=== PATIENT | male | born 1945 | race Caucasian/White ===

== ENCOUNTER 2022-05-22 06:20 | Day surgery (SDC) | payer OTHER ==
[~2022-05-22] VITALS: Ht 165.1 cm; Wt 68.7 kg
[2022-05-22] MEDS ORDERED: fentaNYL CITRATE/PF 100 MCG/2 ML AMP ONE (07:49)
[2022-05-22] MEDS ORDERED: MIDAZOLAM HCL 5 MG/5 ML VIAL ONE (07:49)
[2022-05-22] MEDS ORDERED: BENZOCAINE 20% 0.5mL UD SPRAY MM ONE (08:49)
[2022-05-22] MEDS ORDERED: SIMETHICONE 40 MG/0.6 ML ML ONE (08:57)
[2022-05-22 13:07] VITALS: BP_SYST 119
== END 2022-05-22 10:30 | disposition home or self-care (01) ==
LOC: SDS 06:20 → SMU 06:22 → EDSEX 08:00 → SDS 10:30
PROVIDERS: ATTEND Internal Medicine
DX: K29.40 Chronic atrophic gastritis without bleeding (principal); K29.50 Unspecified chronic gastritis without bleeding; K31.7 Polyp of stomach and duodenum; K21.9 Gastro-esophageal reflux disease without esophagitis; I10 Essential (primary) hypertension; M81.0 Age-related osteoporosis without current pathological fracture; Z79.899 Other long term (current) drug therapy; Z20.822 Contact with and (suspected) exposure to COVID-19
CPT/HCPCS: 36415 ×2; 43251; 88305; 88312; 88313; 99152; 87426; 43239; U0003; G0378; J2250; J3010